=== PATIENT | male | born 1970 | race Caucasian/White ===

== ENCOUNTER 2024-10-19 15:22 | Emergency (ER) | payer OTHER ==
[~2024-10-19] VITALS: Ht 274.3 cm; Wt 93.0 kg
[2024-10-19] MEDS ORDERED: Diphth,Pertuss(Acell),Tet Vac 0.5 ML VIAL IM ONE ×2 (16:05→16:35)
[2024-10-19] MEDS ORDERED: CEPH500 PO (17:20)
== END 2024-10-19 17:21 | disposition home or self-care (01) ==
LOC: ER 15:22
DX: S61.432A Puncture wound without foreign body of left hand, initial encounter (principal); Z23 Encounter for immunization; W26.8XXA Contact with other sharp object(s), not elsewhere classified, initial encounter
CPT/HCPCS: 73130; 90471; 90715; 99283-25